=== PATIENT | female | born 1960 | race Caucasian/White ===

== ENCOUNTER 2024-05-05 08:51 | Emergency (ER) | payer MEDICAID, SELFPAY ==
--- NOTE | 2024-05-05 09:21 | EDNOTE_ITS ---
ED Abdominal Pain RME/HPI General Chief Complaint: Abdominal Pain Stated complaint: ABDOMINAL PAIN Time seen by provider: 05/05/24 09:17 Arrival date/time: 05/05/24 08:51 Limitations: no limitations RME / HPI RME / HPI narrative: 63 year old female presents to the ED sent by PCP for evaluation of abdominal pain beginning 5 days ago. States pain is located most over epigastric region, described as burning in sensation, rating as moderate. Denies any history of similar pain. Denies fevers, chills, sweats, chest pain, shortness of breath, vomiting, diarrhea, constipation, or urinary symptoms. No known modifying factors at home. Related Data Home Medications ?Medication ?Instructions ?Recorded ?Confirmed Levothyroxine * (SYNTHROID *) 100 mcg PO DAILY THYROID DISORDER 02/05/13 05/05/24 ##0 alprazolam 0.5 mg tablet 0.5 mg PO QDAY PRN Anxiety ##0 02/05/13 05/05/24 albuterol sulfate 90 mcg/actuation 2 inh inhalation Q6H PRN SOB 05/05/24 05/05/24 aerosol inhaler aspirin 81 mg tablet,delayed 81 mg PO QDAY 05/05/24 05/05/24 release atorvastatin 20 mg tablet 20 mg PO QDAY 05/05/24 05/05/24 gabapentin 100 mg capsule 100 mg PO TID 05/05/24 05/05/24 ibuprofen 600 mg tablet 600 mg PO [id number] PRN Pain 05/05/24 05/05/24 losartan 25 mg tablet 25 mg PO QDAY 05/05/24 05/05/24 magnesium oxide 400 mg (241.3 mg 400 mg PO HS 05/05/24 05/05/24 magnesium) tablet promethazine-DM 6.25 mg-15 mg/5 mL 5 ml PO [id number] PRN Cough 05/05/24 05/05/24 oral syrup rimegepant 75 mg disintegrating 75 mg PO PRN PRN Headache 05/05/24 05/05/24 tablet (Nurtec ODT) umeclidinium 62.5 mcg-vilanterol 1 inh inhalation QDAY 05/05/24 05/05/24 25 mcg/actuation powdr for inhalation (Anoro Ellipta) Previous Rx's ?Medication ?Instructions ?Recorded pantoprazole 40 mg tablet,delayed 40 mg PO QDAY #30 tabs 05/05/24 release (Protonix) Allergies Allergy/AdvReac Type Severity Reaction Status Date / Time pregabalin Allergy Mild Seizure Verified 05/05/24 08:53 tetracycline Allergy Mild Anxiety Verified 05/05/24 08:53 Review of Systems Review of Systems Systems Reviewed: All systems reviewed, normal except as documented Past Medical History Past Medical History ENDOCRINE: Negative Diabetes Mellitus Type 2 Social History SMOKING STATUS: Current every day smoker ED Exam General Limitations: Present no limitations General appearance: Present alert and in no apparent distress Head Head exam: Present atraumatic, normocephalic and normal inspection Eye Eye exam: Present normal appearance, PERRL and EOMI ENT ENT exam: Present normal exam, normal oropharynx and mucous membranes moist Neck Neck exam: Present normal inspection, full ROM and trachea midline Chest Chest inspection: Present normal inspection and symmetric chest wall rise Respiratory Respiratory exam: Present normal lung sounds bilaterally Cardiovascular Cardiovascular exam: Present regular rate, normal rhythm and normal heart sounds Abdominal Exam Abdominal exam: Present soft, tenderness (mild tenderness over epigastric area ) and normal bowel sounds; Absent distention, guarding or rebound Extremities Exam Extremities exam: Present normal inspection and full ROM Back Exam Back exam: Present normal inspection and full ROM Neurological Exam Neurological exam: Present alert, oriented X3 and CN II-XII intact Psychiatric Psychiatric exam: Present normal affect and normal mood Skin Skin exam: Present warm, dry, intact and normal color Course Quality Measures none Orders Category Date Time Status EKG (ED ONLY) *Do not use* NOW Care 05/05/24 09:23 Completed EKG (ED Only) Stat Exams 05/05/24 09:22 Draft US abdomen limited Stat Exams 05/05/24 09:22 Completed CBC Stat Lab 05/05/24 09:49 Completed CMP [Comprehensive Metabolic Panel] Stat Lab 05/05/24 09:49 Completed Lipase Stat Lab 05/05/24 09:49 Completed Troponin I Stat Lab 05/05/24 09:49 Completed UA [Urinalysis] Stat Lab 05/05/24 10:44 Completed Reevaluation(s) Reevaluation #1: Patient remains clinically stable throughout the emergency department visit. We reviewed all the results, analysis, and treatment plans. Patient is amenable to discharge. Strict return precautions were outlined. Patient was discharged in stable condition. Time: 12:15 Vital Signs Vital signs: Vital Signs Temperature 98.2 F 05/05/24 09:34 Pulse Rate 96 05/05/24 09:34 Respiratory Rate 16 05/05/24 09:34 Blood Pressure 113/75 05/05/24 09:34 Pulse Oximetry (%) 97 05/05/24 09:34 Oxygen Delivery Method Room Air 05/05/24 09:34 Pulse ox is 97% on room air which is adequate. Abdominal Pain MDM MDM Narrative MDM Narrative:: Myrtle Simon am scribing for and in the presence of Dr. Hansen. Patient data External records reviewed:: [facility] previous records (I reviewed ED visit on 11/01/2020) Clinical information provided by:: patient Social determinants that could affect healthcare access:: none Patient has the following chronic illnesses:: Asthma, hyperlipidemia, hypertension How is presenting disease/condition affected by chronic disease/condition?: uneffected by Evaluation data The following diagnostics were reviewed and interpreted by me:: lab results, radiology exam(s) and EKG tracing(s) Lab and/or radiology exams considered but not ordered:: None Interpretation Summary: Ordering Physician: Alfa Hansen MD Date of Service: 05/05/24 Procedure(s): US abdomen limited Accession Number(s): [id number] cc: Alfa Hansen MD; Jaxson Vegas MD; Yennifer Bolton PA-C~ Examination: Abdomen sonogram, Limited Date and time of exam: May 05, 2024 at 1102 hours Indications: Epigastric pain abdominal pain beginning 5 days ago Technique: Real-time valdez scale transabdominal sonographic images of the upper abdomen obtained. Findings: Normal gallbladder Normal common bile duct 0.5 cm Pancreatic head 1.8 cm Liver 14.4 cm fatty infiltration no focal liver lesions Normal hepatopedal portal venous flow Patent IVC Impression: Normal gallbladder Normal common bile duct Liver normal size no focal liver lesions Dictated By: Jaxson Vegas MD Signed By: <Electronically signed by Jaxson Vegas MD in OV> 05/05/24 1159 Medications / Prescriptions Medications or Prescriptions considered but not ordered:: None Medication administrations:: None Consultations Consultation(s) initiated? (list below): No Diagnosis Differential diagnosis abdominal pain: abdominal pain, calculus of kidney and constipation Most likely diagnosis given after review of the tests above:: Gastritis Admission Indicated Admission indicated?: not indicated Admission Request Was there a request for admission?: No Disposition Plan Disposition Plan: Discharge Discharge Attestation Discharge Attestation: The patient and all family members were given an opportunity to ask questions and understood the discharge instructions. Discharge instructions specifically effects, indications for sooner follow up or return to the emergency department, and the expected course of current diagnosis. Patient condition: Stable Discharge Plan Plan Patient Disposition: HOME (Self Care) Patient condition on transfer: Stable Prescriptions/Referrals Prescriptions/Med Rec: New pantoprazole [Protonix] 40 mg tablet,delayed release (DR/EC) 40 mg PO QDAY Qty: 30 0RF No Action alprazolam 0.5 MG tablet 0.5 mg PO QDAY PRN (Reason: Anxiety) Qty: 0 Levothyroxine * (SYNTHROID *) 100 MCG tablet 100 mcg PO DAILY Qty: 0 promethazine-DM 6.25-15 mg/5 mL syrup 5 ml PO [id number] PRN (Reason: Cough) Patient Comments: TAKE 5ML BY MOUTH EVERY 6 TO 8 HOURS NEEDED FOR COUGH atorvastatin 20 mg tablet 20 mg PO QDAY Patient Comments: TAKE 1 TABLET BY MOUTH EVERY DAY aspirin [Aspir-81] 81 mg Tablet,Delayed Release (Dr/Ec) 81 mg PO QDAY magnesium oxide 400 mg (241.3 mg magnesium) tablet 400 mg PO HS Patient Comments: TAKE 1 TABLET BY MOUTH EVERY DAY AT NIGHT losartan 25 mg tablet 25 mg PO QDAY Patient Comments: TAKE 1 TABLET BY MOUTH EVERY DAY gabapentin 100 mg capsule 100 mg PO TID Patient Comments: TAKE 1 CAPSULE BY MOUTH THREE TIMES A DAY FOR PAIN ibuprofen 600 mg tablet 600 mg PO [id number] PRN (Reason: Pain) Patient Comments: TAKE 1 TABLET BY MOUTH EVERY 6-8 HOURS NEEDED FOR PAIN WITH FOOD albuterol sulfate 90 mcg/actuation HFA aerosol inhaler 2 inh INHALATION Q6H PRN (Reason: SOB) Patient Comments: INHALE 2 PUFFS BY MOUTH EVERY 6 HOURS NEEDED FOR ASTHMA SYMPTOMS Anoro Ellipta 62.5-25 mcg/actuation blister with device 1 inh INHALATION QDAY Patient Comments: INHALE 1 PUFF BY MOUTH DAILY Nurtec ODT 75 mg tablet,disintegrating 75 mg PO PRN PRN (Reason: Headache) Patient Comments: PLACE 1 TABLET ON THE TONGUE AND LET DISSOLVE BY MOUTH AT ONSET OF HEADACHE Referrals: Yennifer Bolton PA-C [Primary Care Provider] - In 1 week Problem List Clinical Impression: Gastritis Patient/Caregiver Discharge Instructions Discharge Activity: activity as tolerated Education Materials: ED Gastritis (Adult) Print Language: Romanian Stand Alone Forms: [employer] Info., Patient Portal Info Letter
--- NOTE | 2024-05-05 09:22 | EKG_ITS ---
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
[2024-05-05 09:34] VITALS: BP 113/75; PULSE 96; RESP 16; TEMP 36.8; O2SAT 97; BMI 25.4
[2024-05-05 09:55] VITALS: BP 128/75; PULSE 88; RESP 19; TEMP 36.7; O2SAT 96
[2024-05-05 10:09] LABS: Basophils % (Auto) 1 % (0-2.5); Eosinophils # (Auto) 0.1 Thou/mm3 (0.0-0.5); Eosinophils % (Auto) 1 % (0-10); Hemoglobin 13.5 g/dL (12.0-16.0); Immature Granulocytes % (Auto) 0 % (0-0); Immature Granulocytes Auto 0.02 Thou/mm3 (0.00-0.00); Lymphocytes # (Auto) 1.6 Thou/mm3 (1.0-4.8); Lymphocytes % (Auto) 19 % (10-50); Mean Corpuscular HGB Conc 32.9 g/dl (31.0-37.0); Mean Corpuscular Volume 94 fL (80-100); Monocytes # (Auto) 0.7 Thou/mm3 (0.0-0.8); Monocytes % (Auto) 9 % (0-12); Neutrophils # (Auto) 6.1 Thou/mm3 (1.8-7.7); Neutrophils % (Auto) 71 % (37-80); Nucleated Red Blood Cell % 0 /100 WBC (0); Platelet Count 231 Thou/mm3 (140-440); RDW Standard Deviation 47.8 fL (36.4-46.3); Red Blood Count 4.35 Miln/mm3 (4.00-5.20); White Blood Count 8.6 Thou/mm3 (3.6-11.0)
[2024-05-05 10:29] LABS: Alanine Aminotransferase 14 U/L (10-49); Albumin, Serum 4.2 gm/dL (3.4-4.8); Albumin/Globulin Ratio 1.6 (1.2-2.2); Alkaline Phosphatase 83 U/L (46-116); Anion Gap 3 (7-16); Aspartate Amino Transferase 14 U/L (0-34); BUN/Creatinine Ratio 15 Ratio (12-20); Bilirubin,Total 0.4 mg/dL (0.3-1.2); Blood Urea Nitrogen 12 mg/dL (9-23); Calcium 9.4 mg/dL (8.3-10.6); Calcium (Corrected) 9.4 mg/dL (8.5-10.1); Carbon Dioxide 26.7 mMol/L (20.0-31.0); Chloride 110 mMol/L (98-107); Creatinine (Component) 0.8 mg/dL (0.6-1.3); Estimated Creatinine Clearance 58.6 mL/min (>60); Globulin 2.7 gm/dL (2.3-3.5); Glucose 80 mg/dL (74-106); Lipase 34 U/L (12-53); Osmolality,Calculated 278 (275-295); Potassium 4.1 mMol/L (3.4-5.1); Sodium 140 mMol/L (136-145); Total Protein 6.9 gm/dL (5.7-8.2); Troponin I < 0.002 ng/mL (0.0-0.045); eGFR > 60 See Note
--- NOTE | 2024-05-05 10:40 | PC.NURSE ---
PT CAME IN WITH C/O UPPER ABD PAIN AND DIARRHEA X 5 DAYS. PT STATES SHE SPOKE WITH HER PMD AND WAS TOLD TO COME IN FOR POSSIBLE HYDRATION AND ABX. NO FEVER OR VOMITING REPORTED AT HOME. PT UP TO RESTROOM AT THIS TIME TO OBTAIN UA SAMPLE
[2024-05-05 11:11] LABS: Collection Type, Urine Clean Catch
[2024-05-05 11:24] LABS: Bilirubin,Urine Negative (Negative); Blood,Urine Negative (Negative); Clarity,Urine Clear (Clear/Hazy); Color,Urine Colorless (Lt Yel-Yel); Glucose, Urine Negative (Negative); Ketones,Urine Negative (Negative); Leukocyte Esterase,Urine Negative (Negative); Nitrite,Urine Negative (Negative); Protein,Urine Negative (Neg - Trace); RBC,Urine < 1 /hpf (0-3); Specific Gravity,Urine 1.009 (1.001-1.035); Squamous Epithelial Cell,Urine < 1 /hpf (0-5); Urobilinogen,Urine Negative mg/dL (0.0-1.0); WBC,Urine 1 /hpf (0-5)
[2024-05-05 12:09] VITALS: BP 135/77; PULSE 77; RESP 16; TEMP 36.8; O2SAT 99
[2024-05-05 12:34] VITALS: BP 129/91; PULSE 74; RESP 17; TEMP 36.7; O2SAT 99
== END 2024-05-05 12:34 | disposition home or self-care (01) ==
PROVIDERS: Emergency Provider Emergency Medicine; PCP Physician Assistant
DX: K29.70 Gastritis, unspecified, without bleeding (principal)
CPT/HCPCS: 36415; 76705; 80053; 81001; 83690; 84484; 85025; 93005; 99284

== ENCOUNTER 2024-07-20 11:27 | Emergency (ER) | payer MEDICAID, SELFPAY ==
[2024-07-20 11:36] VITALS: PULSE 82; O2SAT 99; BMI 31.1
[2024-07-20 11:39] VITALS: BP 143/90; PULSE 76; RESP 16; TEMP 36.6; O2SAT 100
--- NOTE | 2024-07-20 11:39 | EKG_ITS ---
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
--- NOTE | 2024-07-20 11:53 | XR_ITS ---
Examination: AP chest single view TECHNIQUE: AP portable upright chest single view Exam date and time: July 20, 2024 12:27 PM INDICATIONS: Onset chest pain today. FINDINGS: Normal heart size Lungs are clear. The osseous structures are demineralized IMPRESSION: No active disease
[2024-07-20 11:55] VITALS: PULSE 76
--- NOTE | 2024-07-20 11:56 | EDNOTE_ITS ---
<Statement entered by Yennifer Marin MD - 07/20/24 17:41> As co-signing physician, I was present and available for consult prn. I concur with the plan and care as documented by the midlevel provider. ED Chest Pain RME/HPI General Chief Complaint: Chest Pain Stated Complaint: CHEST PAIN Time Seen by Provider: 07/20/24 11:45 Arrival date/time: 07/20/24 11:27 RME / HPI RME / HPI narrative: 63-year-old female patient with significant history of this hypothyroidism hypertension, chronic smoker, came in for evaluation regarding left-sided chest pain. Onset of symptoms about 1 hour prior to ER visit as sudden onset of left- sided chest pain, he happened while patient was sitting on the couch, doing nothing, described as sharp pain, severity moderate. Patient also complained of shortness of breath. Patient denies any cough. Denies any fever. Denies any other complaints. Patient was given aspirin, nitro and Nitropaste by EMS on the way to the emergency room. Related Data Home Medications ?Medication ?Instructions ?Recorded ?Confirmed Levothyroxine * (SYNTHROID *) 100 mcg PO DAILY THYROID DISORDER 02/05/13 05/05/24 ##0 alprazolam 0.5 mg tablet 0.5 mg PO QDAY PRN Anxiety # #0 02/05/13 05/05/24 albuterol sulfate 90 mcg/actuation 2 inh inhalation Q6 H PRN SOB 05/05/24 05/05/24 aerosol inhaler aspirin 81 mg tablet,delayed 81 mg PO QDAY 05/05/24 release atorvastatin 20 mg tablet 20 mg PO QDAY 05/05/2405/05 gabapentin 100 mg capsule 100 mg PO TID 05/05/2405/05 ibuprofen 600 mg tablet 600 mg PO [id number] PRN Pain 1 07/05/23 05/05/24 losartan 25 mg tablet 25 mg PO QDAY 05/05/2405/05 magnesium oxide 400 mg (241.3 mg 400 mg PO HS 05/05/24 05/05/24 magnesium) tablet promethazine-DM 6.25 mg-15 mg/5 mL 5 ml PO [id number] PRN Cough 05/05/24 05/05/24 oral syrup rimegepant 75 mg disintegrating 75 mg PO PRN PRN Heada latoya 05/05/24 05/05/24 tablet (Nurtec ODT) umeclidinium 62.5 mcg-vilanterol 1 inh inhalation QDAY 05/05/24 05/05/24 25 mcg/actuation powdr for inhalation (Anoro Ellipta) Previous Rx's ?Medication ?Instructions ?Recorded pantoprazole 40 mg tablet,delayed 40 mg PO QDAY #30 ta bs 05/05/24 release (Protonix) acetaminophen 300 mg-codeine 30 mg 1 tab PO Q12H PRN p ain #14 tabs 07/20/24 tablet pantoprazole 40 mg tablet,delayed 40 mg PO QDAY #14 ta bs 07/20/24 release (Protonix) Allergies Allergy/AdvReac Type Severity Reaction Status Date / Time pregabalin Allergy Mild Seizure Verified 07/20/24 11:36 tetracycline Allergy Mild Anxiety Verified 07/20/24 11:36 Review of Systems Review of Systems Narrative Review of Systems: Review of system reviewed and within normal limits except mentioned in HPI ED Exam Narrative Physical exam: VITAL SIGNS: Reviewed. GENERAL APPEARANCE: Alert and interactive, follows commands, no acute distress, HEAD AND FACE: Non-traumatic. ENT: PERRL, pink conjunctivitis, eyelid no trauma, Mucous membrane moist. NECK: Supple, nontender, no nuchal rigidity. CHEST: Left chest tenderness, no crepitus, no paradoxical movement, no retractions. LUNGS: Clear, well ventilated, symmetric, no rales, no wheezing, no ronchi, no stridor, good breath sounds bilaterally. HEART: Regular rate, regular rhythm, no murmur, no gallops. ABDOMEN: Soft, positive bowel sounds, nondistended, no guarding, nontender, no rebound, no masses, RECTAL: Deferred. GENITAL: Deferred. NEUROLOGICAL: Gross motor function intact sensory function intact, Appropriate for age. MUSCULOSKELETAL: low back nontender, full range of motion. EXTREMITIES: Nontender, full range of motion. SKIN: Color pink, dry, no rash, no lacerations, no abrasions, no contusions. LYMPHATICS: Deferred. Course Quality Measures none Orders Category Date Time Status Bedside COVID-19 Antigen Test NOW Care 07/20/24 11:53 Active Bedside Influenza A&B Antigen Test NOW Care 07/20/24 11:54 Completed EKG (ED ONLY) *Do not use* NOW Care 07/20/24 11:39 Completed EKG (ED Only) Stat Exams 07/20/24 11:39 Draft XR chest 1V Stat Exams 07/20/24 11:53 Completed B-Type Natriuretic Peptide Stat Lab 07/20/24 11:57 Completed CBC Stat Lab 07/20/24 11:57 Completed Comprehensive Metabolic Panel Stat Lab 07/20/24 11:57 Completed Partial Thromboplastin Time Stat Lab 07/20/24 11:57 Completed Prothrombin Time with INR Stat Lab 07/20/24 11:57 Completed Troponin I Stat Lab 07/20/24 11:57 Completed Troponin I Stat Lab 07/20/24 13:52 Completed Urinalysis, C/S if Indicated Stat Lab 07/20/24 11:57 Completed Morphine Inj Med 07/20/24 14:47 Discontinued 4 mg IVP X1 ONE Ondansetron Inj [Zofran Inj] Med 07/20/24 15:17 Discontinued 4 mg IV X1 ONE mg Hyd/Al Hyd/[place] Susp [Maalox Susp] Med 07/20/24 14:47 Discontinued 30 ml PO X1 ONE Vital Signs Vital signs: Vital Signs Temperature 97.8 F 07/20/24 11:39 Pulse Rate 76 07/20/24 11:39 Respiratory Rate 16 07/20/24 11:39 Blood Pressure 143/90 H 07/20/24 11:39 Pulse Oximetry (%) 100 07/20/24 11:39 Oxygen Delivery Method Room Air 07/20/24 11:39 Chest Pain MDM Narrative MDM Narrative:: 63-year-old female patient with significant history of this hypothyroidism hypertension, chronic smoker, came in for evaluation regarding left-sided chest pain. Onset of symptoms about 1 hour prior to ER visit as sudden onset of left- sided chest pain, he happened while patient was sitting on the couch, doing nothing, described as sharp pain, severity moderate. Patient also complained of shortness of breath. Patient denies any cough. Denies any fever. Denies any other complaints. Patient was given aspirin, nitro and Nitropaste by EMS on the way to the emergency room. EKG showed sinus rhythm, ventricular rate of 76 bpm, no ST segment elevation depression noted. Cardiac workup including troponin x 2 3 hours apart came back normal. The rest of the labs unremarkable. Chest x-ray showed no acute pathology noted. Results discussed with the patient and family. Patient was given morphine and Zofran in the emergency with complete resolution of chest pain. Was also given Maalox. Patient data External records reviewed:: None Clinical information provided by:: patient Social determinants that could affect healthcare access:: none Patient has the following chronic illnesses:: Chronic smoker, hypertension hypothyroidism How is presenting disease/condition affected by chronic disease/condition?: exacerbated by Evaluation data The following diagnostics were reviewed and interpreted by me:: lab results, radiology exam(s) and EKG tracing(s) Lab and/or radiology exams considered but not ordered:: None Interpretation Summary: See results in [facility] Medications / Prescriptions Medications or Prescriptions considered but not ordered:: None Medication administrations:: Medication Administration History Discontinued Medications Al Hydrox/Mg Hydrox/Simethicone (Mg Hyd/Al Hyd/[place] (Maalox Reg) Susp 30 Ml Udc) 30 ml PO X1 ONE Stop: 07/20/24 14:48 Last Admin: 07/20/24 15:09 Dose: 30 ml Documented By: RACHELLE Morphine Sulfate (Morphine Sulf Inj 10 Mg/Ml Vial) 4 mg IVP X1 ONE Stop: 07/20/24 14:48 Last Admin: 07/20/24 15:08 Dose: 4 mg Documented By: RD Ondansetron HCl (Ondansetron Inj 2 Mg/Ml Inj 2 Ml) 4 mg IV X1 ONE; Protocol Stop: 07/20/24 15:18 Last Admin: 07/20/24 15:25 Dose: 4 mg Documented By: Maalox, morphine and Zofran Consultations Consultation(s) initiated? (list below): No Diagnosis Chest Pain Differential Diagnosis: pneumothorax, chest pain and other (COPD) Most likely diagnosis given after review of the tests above:: Chest pain, anxiety Admission Indicated Admission indicated?: not indicated Explain why admission is indicated or not indicated:: Stable, currently prior to discharge patient is having no symptoms patient is asking if she can be discharge home. Admission Request Was there a request for admission?: No Disposition Plan Disposition Plan: Discharge Discharge Attestation Discharge Attestation: The patient and all family members were given an opportunity to ask questions and understood the discharge instructions. Discharge instructions specifically effects, indications for sooner follow up or return to the emergency department, and the expected course of current diagnosis. Patient condition: Stable Discharge Plan Plan Patient Disposition: HOME (Self Care) Disposition Comment: stable Prescriptions/Referrals Prescriptions/Med Rec: New pantoprazole [Protonix] 40 mg tablet,delayed release (DR/EC) 40 mg PO QDAY Qty: 14 0RF acetaminophen-codeine 300-30 mg tablet 1 tab PO Q12H PRN (Reason: pain) Qty: 14 0RF No Action alprazolam 0.5 MG tablet 0.5 mg PO QDAY PRN (Reason: Anxiety) Qty: 0 Levothyroxine * (SYNTHROID *) 100 MCG tablet 100 mcg PO DAILY Qty: 0 promethazine-DM 6.25-15 mg/5 mL syrup 5 ml PO [id number] PRN (Reason: Cough) Patient Comments: TAKE 5ML BY MOUTH EVERY 6 TO 8 HOURS NEEDED FOR COUGH atorvastatin 20 mg tablet 20 mg PO QDAY Patient Comments: TAKE 1 TABLET BY MOUTH EVERY DAY aspirin [Aspir-81] 81 mg Tablet,Delayed Release (Dr/Ec) 81 mg PO QDAY magnesium oxide 400 mg (241.3 mg magnesium) tablet 400 mg PO HS Patient Comments: TAKE 1 TABLET BY MOUTH EVERY DAY AT NIGHT losartan 25 mg tablet 25 mg PO QDAY Patient Comments: TAKE 1 TABLET BY MOUTH EVERY DAY gabapentin 100 mg capsule 100 mg PO TID Patient Comments: TAKE 1 CAPSULE BY MOUTH THREE TIMES A DAY FOR PAIN ibuprofen 600 mg tablet 600 mg PO [id number] PRN (Reason: Pain) Patient Comments: TAKE 1 TABLET BY MOUTH EVERY 6-8 HOURS NEEDED FOR PAIN WITH FOOD albuterol sulfate 90 mcg/actuation HFA aerosol inhaler 2 inh INHALATION Q6H PRN (Reason: SOB) Patient Comments: INHALE 2 PUFFS BY MOUTH EVERY 6 HOURS NEEDED FOR ASTHMA SYMPTOMS Anoro Ellipta 62.5-25 mcg/actuation blister with device 1 inh INHALATION QDAY Patient Comments: INHALE 1 PUFF BY MOUTH DAILY Nurtec ODT 75 mg tablet,disintegrating 75 mg PO PRN PRN (Reason: Headache) Patient Comments: PLACE 1 TABLET ON THE TONGUE AND LET DISSOLVE BY MOUTH AT ONSET OF HEADACHE pantoprazole [Protonix] 40 mg tablet,delayed release (DR/EC) 40 mg PO QDAY Qty: 30 0RF Referrals: Yennifer Bolton PA-C [Primary Care Provider] - In 1 week Problem List Clinical Impression: Chest pain, Anxiety Patient/Caregiver Discharge Instructions Discharge Activity: activity as tolerated Education Materials: ED Anxiety Reaction Additional Instructions: Thank you for the opportunity for serving you today. You are stable for discharged . You are advised to: Follow-up with your PCP in 1 to 2 days Return to ED for worsening of symptoms Increase oral fluids Take medication as prescribed Print Language: Urdu Stand Alone Forms: [employer] Info., Patient Portal Info Letter
[2024-07-20 12:15] LABS: Basophils % (Auto) 1 % (0-2.5); Eosinophils # (Auto) 0.1 Thou/mm3 (0.0-0.5); Eosinophils % (Auto) 2 % (0-10); Hematocrit 39.1 % (36.0-46.0); Immature Granulocytes % (Auto) 0 % (0-0); Immature Granulocytes Auto 0.02 Thou/mm3 (0.00-0.00); Lymphocytes % (Auto) 39 % (10-50); Mean Corpuscular HGB Conc 33.2 g/dl (31.0-37.0); Mean Corpuscular Hemoglobin 31.1 pg (25.0-35.0); Mean Corpuscular Volume 94 fL (80-100); Monocytes # (Auto) 0.6 Thou/mm3 (0.0-0.8); Monocytes % (Auto) 12 % (0-12); Neutrophils # (Auto) 2.3 Thou/mm3 (1.8-7.7); Neutrophils % (Auto) 45 % (37-80); Nucleated Red Blood Cell % 0 /100 WBC (0); Platelet Count 243 Thou/mm3 (140-440); RDW Standard Deviation 44.9 fL (36.4-46.3); Red Blood Count 4.18 Miln/mm3 (4.00-5.20); White Blood Count 5.1 Thou/mm3 (3.6-11.0)
[2024-07-20 12:23] LABS: Collection Type, Urine Clean Catch; WBC,Urine 0 /hpf (0-5)
[2024-07-20 12:29] LABS: Partial Thromboplastin Time 23.4 Seconds (22.0-36.0); Prothrombin Time 10.8 Seconds (9.0-12.2)
[2024-07-20 12:40] LABS: B-Type Natriuretic Peptide < 20 pg/mL (0-100)
[2024-07-20 12:41] LABS: Alanine Aminotransferase 12 U/L (10-49); Albumin/Globulin Ratio 1.5 (1.2-2.2); Alkaline Phosphatase 80 U/L (46-116); Anion Gap 7 (7-16); Aspartate Amino Transferase 21 U/L (0-34); BUN/Creatinine Ratio 11 Ratio (12-20); Bilirubin,Total 0.4 mg/dL (0.3-1.2); Blood Urea Nitrogen 9 mg/dL (9-23); Calcium 9.1 mg/dL (8.3-10.6); Calcium (Corrected) 9.1 mg/dL (8.5-10.1); Carbon Dioxide 25.5 mMol/L (20.0-31.0); Chloride 108 mMol/L (98-107); Creatinine (Component) 0.8 mg/dL (0.6-1.3); Estimated Creatinine Clearance 70.1 mL/min (>60); Globulin 2.6 gm/dL (2.3-3.5); Glucose 143 mg/dL (74-106); Osmolality,Calculated 280 (275-295); Sodium 140 mMol/L (136-145); Total Protein 6.6 gm/dL (5.7-8.2); Troponin I < 0.002 ng/mL (0.0-0.045); eGFR > 60 See Note
[2024-07-20 12:53] LABS: Bacteria,Urine Rare; Bilirubin,Urine Negative (Negative); Blood,Urine Negative (Negative); Clarity,Urine Clear (Clear/Hazy); Color,Urine Colorless (Lt Yel-Yel); Culture Indicated,Urine Not Indicated; Glucose, Urine Negative (Negative); Ketones,Urine Negative (Negative); Leukocyte Esterase,Urine Negative (Negative); Nitrite,Urine Negative (Negative); Protein,Urine Negative (Neg - Trace); RBC,Urine < 1 /hpf (0-3); Specific Gravity,Urine 1.005 (1.001-1.035); Squamous Epithelial Cell,Urine 1 /hpf (0-5); Urobilinogen,Urine Negative mg/dL (0.0-1.0)
[2024-07-20 13:24] VITALS: BP 143/90; PULSE 82; RESP 18; TEMP 36.5; O2SAT 99
[2024-07-20 14:28] LABS: Troponin I < 0.020 ng/mL (0.0-0.045)
[2024-07-20] MEDS: MORPHINE SULF INJ 10 MG/ML VIAL 4 MG IVP (15:08)
[2024-07-20] MEDS: MG HYD/AL HYD/SIME (Maalox Reg) SUSP 30 ML UDC PO (15:09)
[2024-07-20 15:20] VITALS: BP 141/91; PULSE 91; RESP 15; TEMP 36.6; O2SAT 96
[2024-07-20] MEDS: ONDANSETRON INJ 2 MG/ML INJ 2 ML 4 MG IV (15:25)
[2024-07-20 16:16] VITALS: BP 142/87; PULSE 96; RESP 17; TEMP 36.8; O2SAT 99
== END 2024-07-20 17:00 | disposition home or self-care (01) ==
PROVIDERS: Nurse Practitioner Family; Emergency Provider Emergency Medicine; PCP Physician Assistant
DX: R07.89 Other chest pain (principal); F41.9 Anxiety disorder, unspecified; I10 Essential (primary) hypertension; E03.9 Hypothyroidism, unspecified; F17.200 Nicotine dependence, unspecified, uncomplicated
CPT/HCPCS: 36415; 71045; 80053; 81001; 83880; 84484; 85025; 85610; 85730; 87400; 87811; 93005; 96374; 99284; J2270; J2405; A9270

== ENCOUNTER → 2024-12-04 | Outpatient (CLI) | payer MEDICAID, SELFPAY ==
--- NOTE | 2024-12-04 11:00 | XR_ITS ---
Examination: CT chest, without intravenous contrast. Sagittal and coronal 2-D reconstructions. Exam date and time: December 04, 2024 1109 hours Comparison May 26, 2019 INDICATIONS: Smoking history 45 years, COPD CTDI:vol (mGy) 10.4 DLP: (mGycm) 360 Technique: Multiple 3.0 mm axial sections of the chest to been obtained. Bone and lung density settings are obtained. Sagittal and coronal 2-D reconstructions have been obtained. Low dose protocols were performed. One or more of the following dose reduction techniques were used; automated exposure control, adjustment of the mA and/or KV according to patient size, use of iterative reconstruction technique. Findings: No thoracic aortic aneurysm dilatation Pulmonary artery segments are not enlarged No paratracheal tracheobronchial or bronchopulmonary adenopathy No pneumonia or pulmonary edema, no pleural disease or noncalcified pulmonary nodules No visualized liver or splenic lesion 3 mm left renal calculus IMPRESSION: No mediastinal lymphadenopathy No pneumonia, pulmonary edema or noncalcified pulmonary nodules
== END | disposition home or self-care (01) ==
PROVIDERS: Referring Provider Physician Assistant; Visit Provider Physician Assistant
DX: F17.210 Nicotine dependence, cigarettes, uncomplicated (principal)
CPT/HCPCS: 71271

== ENCOUNTER → 2024-12-12 | Outpatient (CLI) | payer MEDICAID, SELFPAY ==
--- NOTE | 2024-12-12 11:15 | XR_ITS ---
Examination: Screening digital mammography, bilateral Computer aided detection 3-D breast Tomosynthesis, bilateral Date and time of exam: December 12, 2024 1134 hours Compared to mammograms dating to July 13, 2012 Indication: Screening Technique: Nonmagnified MLO, CC views of the breasts to been obtained, reconstructed from 3-D Tomosynthesis images. R2 computer aided detection program utilized for evaluation of suspicious masses and/or abnormal calcifications. 3-D Tomosynthesis images obtained. Findings: Scattered areas of fibroglandular density. Benign calcifications. Skin lesion upper outer right breast Impression: BI-RADS category II: Benign Findings. Recommend 1 year follow-up mammogram.
--- NOTE | 2024-12-12 11:45 | XR_ITS ---
Examination: Ultrasound soft tissue right axilla TECHNIQUE: Grayscale sonographic images soft tissue right axilla Date and time: December 12, 2024, 1143 hours INDICATIONS: Recurrent palpable lumps in the right axilla beginning 6 years ago FINDINGS: No cystic or soft tissue mass in the right axilla IMPRESSION: No cystic or solid mass in the soft tissue right exam
== END | disposition home or self-care (01) ==
LOC: CDIM 11:24
PROVIDERS: Referring Provider Physician Assistant; Visit Provider Physician Assistant
DX: Z12.31 Encounter for screening mammogram for malignant neoplasm of breast (principal); R92.323 Mammographic fibroglandular density, bilateral breasts; R92.1 Mammographic calcification found on diagnostic imaging of breast; R22.31 Localized swelling, mass and lump, right upper limb
CPT/HCPCS: 76882; 77063; 77067